=== PATIENT | male | born 1990 | race Two or more races ===

== ENCOUNTER 2019-07-24 18:50 | Emergency (ER) | payer MEDICAID, OTHER ==
--- NOTE | 2019-07-24 21:49 | EDM.PDOC ---
ED HPI GENERAL MEDICAL PROBLEM - General Chief Complaint: Lower Extremity Injury/Pain Stated Complaint: RT FOOT PAIN Time Seen by Provider: 07/24/19 21:15 Source of Information: Reports: Patient History Limitations: Reports: No Limitations - History of Present Illness INITIAL COMMENTS - FREE TEXT/NARRATIVE: ED with c/o pain to right foot and bruising. Pain secondary to dropping large bar on foot while at work on . Noticed increased bruising tonight. Treatments RN OTOLARYNGOLOGY: Reports: Acetaminophen, NSAIDS Right Feet Pain Score (Numeric/FACES): 2 - Related Data Allergies Allergy/AdvReac Type Severity Reaction Status Date / Time No Known Allergies Allergy Verified 07/24/19 19:05 Home Meds: Home Meds . [No Known Home Meds] 07/24/19 [History] Past Medical History - Past Health History Medical/Surgical History: Denies Medical/Surgical History Social & Family History - Family History Family Medical History: Noncontributory - Tobacco Use Smoking Status *Q: Never Smoker Second Hand Smoke Exposure: No - Caffeine Use Caffeine Use: Reports: Coffee, Soda - Recreational Drug Use Recreational Drug Use: No Review of Systems - Review of Systems Review Of Systems: Comprehensive ROS is negative, except as noted in HPI. ED EXAM, GENERAL - Physical Exam Exam: See Below Exam Limited By: No Limitations General Appearance: Alert, No Apparent Distress Ears: Normal External Exam Nose: Normal Inspection Throat/Mouth: Normal Inspection, Normal Oropharynx Head: Atraumatic, Normocephalic Neck: Normal Inspection Respiratory/Chest: No Respiratory Distress Cardiovascular: Normal Peripheral Pulses, Regular Rate, Rhythm Extremities: Joint Swelling (right foot bruising, purple discoloration 2-4 toes , fore foot mild swelling, tender 3rd and 4th toes. ), Limited Range of Motion Neurological: Alert, Oriented, Normal Cognition, No Motor/Sensory Deficits Psychiatric: Normal Affect, Normal Mood Course - Vital Signs Last Recorded V/S: Last Vital Signs Temp 98 F 07/24/19 19:06 Pulse Resp 16 07/24/19 19:06 BP 148/74 H 07/24/19 19:06 Pulse Ox 99 07/24/19 19:06 - Radiology Interpretation Free Text/Narrative:: [facility] - [facility] Final Radiology Report Call: [phone] assistance Online chat: [email or web address] Name: RAIZA SUNG Age: 29Years M Date: 07/24/2019 SSN: -- : [id number] Study: XR FOOT COMPLETE MIN 3 VIEWS RIGHT Requesting Physician: SURENDRA FAY Images: 3 Addl Studies: Provided Clinical History: dropped a bar on right foot, pain, swelling, bruising Contrast: Contrast Medium: Contrast Amount: Contrast Method: CONFIDENTIALITY STATEMENT This report is intended only for use by the referring physician, and only in accordance with law. If you received this in error, call [phone]. Page 1 of 1 PROCEDURE INFORMATION: Exam: XR Right Foot Complete Exam date and time: 07/24/2019 7:17 PM Age: 29 years old Clinical history: Injury or trauma; Injury history: Dropped a bar on right foot ; Work related; Initial encounter; Abrasion; Injury date: The past few days; Additional info: Dropped a bar on right foot, pain, swelling, bruising TECHNIQUE: Imaging protocol: XR Right foot. Views: 3 or more views. COMPARISON: No relevant prior studies available. FINDINGS: Bones/joints: There appears to be a nondisplaced fracture through the proximal shaft of the proximal phalanx of the right fourth toe. There is mild soft tissue swelling over the dorsum of the metatarsophalangeal joints. The alignment of the joints is anatomic and the joint spaces are maintained. Soft tissues: See Bones/joints Finding. IMPRESSION: Nondisplaced fracture of the proximal phalanx of the right fourth toe. Thank you for allowing us to participate in the care of your patient. Dictated and Authenticated by: Jonathan Coelho MD 07/24/2019 7:31 PM Central Time ([place] & [place]) Departure - Departure Time of Disposition: 21:38 Disposition: Home, Self-Care 01 Condition: Good Clinical Impression: Fracture of toe of right foot Qualifiers: Encounter type: initial encounter Toe: lesser toe Fracture type: closed Phalanx : proximal Fracture alignment: nondisplaced Qualified Code(s): S92.514A - Nondisplaced fracture of proximal phalanx of right lesser toe(s), initial encounter for closed fracture - Discharge Information *PRESCRIPTION DRUG MONITORING PROGRAM REVIEWED*: No *COPY OF PRESCRIPTION DRUG MONITORING REPORT IN PATIENT KIKE: No Instructions: Toe Fracture, [id number] Forms: ED Department Discharge Additional Instructions: mitesh tape toes weight bearing as tolerated rest and elevate during rest periods solid shoe alternate tylenol and ibuprofen every 4 hours as needed for discomfort. follow up 2 weeks, sooner if symptoms worsen
== END 2019-07-24 22:30 | disposition home or self-care (01) ==
LOC: DL.ED 18:50
DX: S92.514A Nondisplaced fracture of proximal phalanx of right lesser toe(s), initial encounter for closed fracture (principal); W20.8XXA Other cause of strike by thrown, projected or falling object, initial encounter; Y92.89 Other specified places as the place of occurrence of the external cause; Y93.89 Activity, other specified; Y99.0 Civilian activity done for income or pay
CPT/HCPCS: 73630-RT; 99283; 99283-25

== ENCOUNTER 2020-12-17 11:28 | Emergency (ER) | payer OTHER, BC ==
[2020-12-17] MEDS ORDERED: Bacitracin Oint 1 GM U/D Packet TOP ONE (11:50)
[2020-12-17] MEDS ORDERED: Ibuprofen 400 MG Tab PO ONE (11:50)
--- NOTE | 2020-12-17 11:56 | EDM.PDOC ---
ED HPI GENERAL MEDICAL PROBLEM - General Chief Complaint: Laceration Stated Complaint: SMASHED FINGER Time Seen by Provider: 12/17/20 11:40 Source of Information: Reports: Patient, RN, RN Notes Reviewed History Limitations: Reports: No Limitations - History of Present Illness INITIAL COMMENTS - FREE TEXT/NARRATIVE: Brandon is a 30 y/o male who presents to the ED via personal vehicle for complaints of injury to right fourth digit. The patient reports he pinched the distal portion of the aforementioned finger into a grain separator door about one hour prior to arrival to this facility. He has not attempted to clip the finger nail and has not taken any pain medications. He denies loss of motor or sensory function the digit. - Related Data Allergies Allergy/AdvReac Type Severity Reaction Status Date / Time No Known Allergies Allergy Verified 07/24/19 19:05 Home Meds: Home Meds . [No Known Home Meds] 07/24/19 [History] Past Medical History - Past Health History Medical/Surgical History: Denies Medical/Surgical History Social & Family History - Family History Family Medical History: No Pertinent Family History - Caffeine Use Caffeine Use: Reports: Coffee, Soda ED ROS GENERAL - Review of Systems Review Of Systems: Comprehensive ROS is negative, except as noted in HPI. ED EXAM, SKIN/RASH Exam: See Below Exam Limited By: No Limitations General Appearance: Alert, No Apparent Distress Respiratory/Chest: No Respiratory Distress, Lungs Clear, Normal Breath Sounds, No Accessory Muscle Use, Chest Non-Tender Cardiovascular: Normal Peripheral Pulses, Regular Rate, Rhythm, No Edema, No Gallop, No JVD, No Murmur, No Rub Peripheral Pulses: 2+: Radial (L), Radial (R) Extremities: No Pedal Edema, Normal Capillary Refill, Arm Pain (0.75cm laceration to distal aspect of right fourth digit; nailbed involved). No: Joint Swelling, Limited Range of Motion, Increased Warmth, Redness Neurological: Alert, Oriented, CN II-XII Intact, Normal Cognition, Normal Gait, No Motor/Sensory Deficits Psychiatric: Normal Affect, Normal Mood Skin: Warm, Dry, Normal Color, No Rash, Wound/Incision (See above ) Associated features: Tenderness. No: Warmth, Swelling, Inflammation, Crusting, Weeping Course - Orders/Labs/Meds Meds: Medications Discontinued Medications Generic Name Dose Route Start Last Admin Trade Name Freq PRN Reason Stop Dose Admin Bacitracin 1 dose 12/17/20 11:50 Bacitracin Oint 1 Gm U/D Packet TOP 12/17/20 11:51 ONETIME ONE Ibuprofen 400 mg 12/17/20 11:50 Ibuprofen 400 Mg Tab PO 12/17/20 11:51 ONETIME ONE - Re-Assessments/Exams Free Text/Narrative Re-Assessment/Exam: 12/17/20 Distal aspect of nail removed without complication; no damage to nail bed. Laceration extends into surrounding skin approximately 1mm on either side, laterally - no sutures indicated. TDap current. Discussed wound care and indications for follow up. Patient verbalized understanding and agreement with the plan of care. Departure - Departure Time of Disposition: 12:08 Disposition: Home, Self-Care 01 Condition: Good Clinical Impression: Laceration of finger with damage to nail Qualifiers: Encounter type: initial encounter Finger: ring finger Foreign body presence: without foreign body Laterality: right Qualified Code(s): S61.314A - Laceration without foreign body of right ring finger with damage to nail, initial encounter Injury of right ring finger Qualifiers: Encounter type: initial encounter Qualified Code(s): S69.91XA - Unspecified injury of right wrist, hand and finger(s), initial encounter - Discharge Information *PRESCRIPTION DRUG MONITORING PROGRAM REVIEWED*: Not Applicable *COPY OF PRESCRIPTION DRUG MONITORING REPORT IN PATIENT KIKE: Not Applicable Instructions: Laceration Care, Adult Forms: ED Department Discharge Additional Instructions: Rx: Bactroban 1.) Keep wound clean and dry; keep it covered and wear a glove while at work. 2.) Apply ointment two times a day, until skin has closed. 3.) You may take acetaminophen (Tylenol) 650mg every six hours, as pain persists. You may also take ibuprofen (Motrin/Advil) 400mg every six hours, as pain persists. You may stagger these medications so you are taking a dose every three hours.
== END 2020-12-17 12:18 | disposition home or self-care (01) ==
LOC: DL.ED 11:28
DX: S61.314A Laceration without foreign body of right ring finger with damage to nail, initial encounter (principal); W23.0XXA Caught, crushed, jammed, or pinched between moving objects, initial encounter
CPT/HCPCS: 99283; A9270-GY

== ENCOUNTER 2022-02-17 17:37 | Emergency (ER) | payer OTHER, BC ==
[2022-02-17] MEDS ORDERED: Diphtheria,Pertussis(Acell),Tetanus Vaccine 0.5 ML Syringe IM ONE (18:03)
[2022-02-17] MEDS ORDERED: Bacitracin Oint 1 GM U/D Packet TOP ONE (18:22)
== END 2022-02-17 18:38 | disposition home or self-care (01) ==
LOC: DL.ED 17:37
DX: S60.141A Contusion of right ring finger with damage to nail, initial encounter (principal); Z79.899 Other long term (current) drug therapy; Z23 Encounter for immunization; W23.1XXA Caught, crushed, jammed, or pinched between stationary objects, initial encounter
CPT/HCPCS: 73120-RT; 90471; 90715; 99283-25